=== PATIENT | female | born 1975 | race African-American/Black ===

== ENCOUNTER 2016-11-27 11:33 | Emergency (ER) | payer MEDICAID ==
[~2016-11-27] VITALS: Ht 167.6 cm; Wt 79.4 kg
[2016-11-27] MEDS ORDERED: ERYTHROMYCIN500 M1 ORAL (11:50)
[2016-11-27] MEDS ORDERED: CLINDAMYCIN HC150 MG ORAL (11:50)
[2016-11-27] MEDS ORDERED: PredniSONE 20mg tab ORAL ONE (12:00)
[2016-11-27] MEDS ORDERED: PREDNISONE20 MG ORAL (12:09)
[2016-11-27] MEDS ORDERED: AUGMENTIN 875-1 EAC1 ORAL (12:09)
[2016-11-27] MEDS ORDERED: RANITIDINE HCL150 MG ORAL (12:09)
[2016-11-27 12:14] VITALS: BP 145/96
--- NOTE | 2016-11-29 14:51 | Emergency Room Report ---
History of Present Illness General Chief Complaint: Allergic Reaction Source: Patient Present Illness HPI 41-year-old female presents to ED complaining of a rash. States she noticed a rash after starting clindamycin prescribed by her dentist 3 days ago. Patient noticed itchy rash. Patient told her dentist and was switched to erythromycin. States the rash is getting worse after starting erythromycin. Patient took Benadryl with no relief. Patient denies any known food or drug allergies prior to this. Denies any sore throat or tongue swelling. Denies shortness of breath. No aggravating relieving factors. Denies any other associated symptoms Allergies: Coded Allergies: CLINDAMYCIN (Verified Allergy, Unknown, 11/27/16) Uncoded Allergies: ERYTHROMYCIN (Allergy, Unknown, 11/27/16) Patient History Past Medical History: none Past Surgical History: none Pertinent Family History: none Social History: Denies: alcohol use, drug use, smoking Last Menstrual Period: 11/22/16 Now: No Immunizations: UTD Reviewed Nursing Documentation: PMH: Agreed, PSxH: Agreed Nursing Documentation-PMH Past Medical History: No Stated History Review of Systems All Other Systems: negative except mentioned in HPI Physical Exam Vital Signs Date Time Temp Pulse Resp B/P Pulse Ox O2 Delivery O2 Flow Rate FiO2 11/27/16 11:39 98.4 94 16 163/97 100 Room Air Sp02 EP Interpretation: reviewed, normal General Appearance: no apparent distress, alert, GCS 15, non-toxic Head: normocephalic, atraumatic Eyes: bilateral eye PERRL, bilateral eye normal inspection ENT: hearing grossly normal, normal pharynx, no angioedema, normal voice Neck: full range of motion, supple/symm/no masses Respiratory: chest non-tender, lungs clear, normal breath sounds, speaking full sentences Cardiovascular #1: regular rate, rhythm, no edema Cardiovascular #2: 2+ carotid (R), 2+ carotid (L), 2+ radial (R), 2+ radial (L) , 2+ dorsalis pedis (R), 2+ dorsalis pedis (L) Gastrointestinal: normal bowel sounds, non tender, soft, non-distended, no guarding, no rebound Rectal: deferred Genitourinary: normal inspection, no CVA tenderness Musculoskeletal: back normal, gait/station normal, normal range of motion, non- tender Neurologic: alert, oriented x3, responsive, motor strength/tone normal, sensory intact, speech normal Psychiatric: judgement/insight normal, memory normal, mood/affect normal, no suicidal/homicidal ideation Reflexes: 3+ bicep (R), 3+ bicep (L), 3+ tricep (R), 3+ tricep (L), 3+ knee (R) , 3+ knee (L) Skin: normal color, warm/dry, well hydrated, rash - urticarial rash Lymphatic: no adenopathy Medical Decision Making Diagnostic Impression: Primary Impression: Allergic reaction Qualified Codes: T78.40XA - Allergy, unspecified, initial encounter ER Course Hospital Course 41-year-old female presents ED complaining of itchy rash after taking clindamycin and erythromycin for a dental abscess Differential diagnoses include: allergic reaction, angioedema Clinical course Patient placed on stretcher. After initial history and physical, I ordered prednisone, zantac Patient will stop the erythromycin. I prescribed Augmentin but patient is hesitant to start because she has had so many drug allergies. Patient will discuss with her PMD before starting the medication i. I feel this is a highly complex case requiring extensive working including EKG/Rhythm strip, Xray/CT/US, Blood/urine lab work, repeat exams while in ED, and administration of strong opiates/narcotics for pain control, admission to hospital or close patient follow up. Diagnosis - allergic reaction Stable and discharged to home with prescriptions for Zantac, prednisone, augmentin. Followup with PMD. Return to ED if symptoms recur or worsen Last Vital Signs Date Time Temp Pulse Resp B/P Pulse Ox O2 Delivery O2 Flow Rate FiO2 11/27/16 12:14 98.5 77 16 145/96 100 Room Air Status: improved Disposition: HOME, SELF-CARE Condition: Stable Scripts Amoxicillin/Potassium Clav 875-125* (AUGMENTIN 875-125 TABLET*) 1 Each Tablet 1 TAB ORAL TWICE A DAY, #14 TAB Prov: APARNA JONES M.D. 11/27/16 Ranitidine Hcl* (ZANTAC*) 150 Mg Tablet 150 MG ORAL TWICE A DAY, #30 TAB Prov: APARNA JONES M.D. 11/27/16 Prednisone* (PREDNISONE*) 20 Mg Tablet 40 MG ORAL DAILY for 5 Days, TAB Prov: APARNA JONES M.D. 11/27/16 Referrals: [facility],REFERRING (PCP) Patient Instructions: Drug Allergy APARNA JONES M.D. Nov 29, 2016 14:51
== END 2016-11-27 12:14 | disposition home or self-care (01) ==
LOC: EMR 12:10
DX: T78.40XA Allergy, unspecified, initial encounter (principal); Z88.1 Allergy status to other antibiotic agents; X58.XXXA Exposure to other specified factors, initial encounter; Y92.9 Unspecified place or not applicable
CPT/HCPCS: 99284

== ENCOUNTER 2017-10-22 12:14 | Emergency (ER) | payer MEDICAID ==
[~2017-10-22] VITALS: Ht 167.6 cm; Wt 78.9 kg
[~2017-10-22 12:14] MED LIST: AUGMENTIN 875-1 EAC1 ORAL; CLINDAMYCIN HC150 MG ORAL; ERYTHROMYCIN500 M1 ORAL; PREDNISONE20 MG ORAL; RANITIDINE HCL150 MG ORAL
[2017-10-22] MEDS ORDERED: Acetaminophen 500mg (ES) tab ORAL ONE (12:45)
[2017-10-22] MEDS ORDERED: Tetracaine 0.5% Opth 4ml Soln LEFT EYE ONE (12:45)
[2017-10-22] MEDS ORDERED: Fluorescein Strips LEFT EYE ONE (12:45)
--- NOTE | 2017-10-22 12:46 | Emergency Room Report ---
History of Present Illness General Chief Complaint: Eye Problems Source: Patient Present Illness HPI 41-year-old female patient presents ER complaining of left eye pain for the past 3 days. Patient reports that has been read and slowly increasing pain. Reports that she attempted to treat it at home with eye drops that she had at home, treated with polymyxin B and sulfacetamide eyedrops. Reports history of pinkeye in the past, states this feels different, states feels like there is something in her eye. Denies chemicals or foreign bodies within eye. Denies wearing contacts. Reports wears glasses for reading. Denies fever, chest pain , shortness of breath. Denies other acute symptoms. denies vision loss. denies eyelid crusting. denies curtain coming down on field of vision. Reports rubbing eye. Denies pain with eye movement. Denies hx of STI. Allergies: Coded Allergies: CLINDAMYCIN (Verified Allergy, Unknown, 11/27/16) Uncoded Allergies: ERYTHROMYCIN (Allergy, Unknown, 11/27/16) Patient History Past Medical History: see triage record Last Menstrual Period: 10/21/17 Now: No Reviewed Nursing Documentation: PMH: Agreed; PSxH: Agreed Nursing Documentation-PMH Past Medical History: No Stated History Review of Systems All Other Systems: negative except mentioned in HPI Physical Exam Vital Signs Date Time Temp Pulse Resp B/P (MAP) Pulse Ox O2 Delivery O2 Flow Rate FiO2 10/22/17 12:22 98.3 96 16 137/94 99 Room Air 98.2 Sp02 EP Interpretation: reviewed, normal General Appearance: well appearing, no apparent distress, alert, GCS 15, non- toxic Head: normocephalic, atraumatic Eyes: left eye Scleral Injection - mild; bilateral eye normal inspection, bilateral eye PERRL, bilateral eye EOMI ENT: hearing grossly normal, normal pharynx, no angioedema, normal voice, TMs + canals normal, uvula midline, moist mucus membranes Neck: full range of motion Respiratory: lungs clear, normal breath sounds, no rhonchi, no respiratory distress, no accessory muscle use, no wheezing, speaking full sentences Cardiovascular #1: regular rate, rhythm, no edema Musculoskeletal: back normal, digits/nails normal, gait/station normal, normal range of motion, non-tender Neurologic: alert, oriented x3, responsive, motor strength/tone normal, sensory intact Medical Decision Making PA Attestation Dr. Sahu is my supervising Physician whom patient management has been discussed with. Diagnostic Impression: Primary Impression: Bacterial conjunctivitis Additional Impression: Cough ER Course Pt. presents to the ED c/o left eye pain. Ddx considered but are not limited to FB in eye, corneal abrasion, corneal ulcer , blepharitis, subconjunctival hemorrhage, URI, tonsillitis, pharyngitis, episcleritis. Patient has no signs of surrounding cellulitis, no exophthalmos, no pain with eye movement, does not require imaging at this time. Vital signs: are WNL, pt. is afebrile ORDERS: Ophthalmic Tetracaine. Fluorescein stain of eye. Tylenol for pain. ED INTERVENTIONS: visual acuity performed, see nurse's note. Follow up with warehouse packer. Do not use other peoples eye medication. likely bacterial conjunctivitis, mild resolution of symptoms likely due to patient using eyedrops from daughter. patient's left eye washed out with normal saline. No fluorescein uptake in left eye, low suspicion for corneal abrasion. No FB noted. intraocular pressure of left thigh 16 mmHg, intraocular pressure of right eye 18 mmHg, low suspicion for glaucoma. Wash hands, do not touch eyes, do not rub eyes. patient reports eye feeling better. Lungs clear to auscultation, no pharyngeal erythema or tonsillar swelling or exudates. Cough likely viral in nature. Will provide cough medication to patient. patient did not cough while in ER. DISCHARGE: - Rx provided for OCUFLOX, place 2 drops in affected eye BID for 7 days - Rx provided for Promethazine for cough symptoms Take Tylenol OTC for pain. Does not require rx for Tylenol at this time. Use OTC eye drops to help irrigate eye, not not touch dropper to eye. At this time pt. is stable for d/c to home. Patient resting comfortably in no acute distress, nontoxic appearing. Will provide printed patient care instructions and any necessary prescriptions. Care plan and follow up instructions have been discussed with the patient prior to discharge Follow-up with lime boiler in 24 hours. Follow-up with primary care provider in 2-3 days. Follow up with warehouse packer. Take medications as directed. Patient questions asked and answered. ER precautions given, patient instructed to return to ER immediately for any new or worsening of symptoms. - Please note that this Emergency Department Report was dictated using Quick[employer] Mediachurn operator margarine technology software, occasionally this can lead to erroneous entry secondary to interpretation by the dictation equipment. Last Vital Signs Date Time Temp Pulse Resp B/P (MAP) Pulse Ox O2 Delivery O2 Flow Rate FiO2 10/22/17 12:22 98.3 96 16 137/94 99 Room Air 98.2 Disposition: HOME, SELF-CARE Condition: Stable Scripts Promethazine Hcl (PROMETHAZINE HCL*) 6.25 Mg/5 Ml Syrup 5 ML ORAL Q8H, #120 ML 0 Refills Prov: Jarrett Smart 10/22/17 Ofloxacin (OCUFLOX) 5 Ml Drops 2 DROP OP BID for 7 Days, #5 ML Prov: Jarrett Smart 10/22/17 Patient Instructions: Bacterial Conjunctivitis, [id number], Cough, Adult, [id number] Additional Instructions: Followup with primary care provider in 2-3 days, discuss referral to ophthalmology. Follow-up with warehouse packer. Wash hands, do not touch eye. Take medications as directed. Do not place eyedropper directly on eye. Do not use medications that are not prescribed to. Patient questions asked and answered. ER precautions given, patient instructed to return to ER immediately for any new or worsening of symptoms. Jarrett Smart Oct 22, 2017 12:46
[2017-10-22 13:05] VITALS: BP 137/94
[2017-10-22] MEDS ORDERED: OCUFLOX5 ML OP (13:18)
[2017-10-22] MEDS ORDERED: PROMETHAZI6.25 MG/1 ORAL (13:18)
[2017-10-22 13:55] VITALS: BP 137/94
== END 2017-10-22 13:40 | disposition home or self-care (01) ==
LOC: EMR 12:35
DX: H10.89 Other conjunctivitis (principal); R05 Cough; Z88.1 Allergy status to other antibiotic agents
CPT/HCPCS: 99283

== ENCOUNTER 2019-06-26 09:41 | Emergency (ER) | payer MEDICAID ==
[~2019-06-26] VITALS: Ht 167.6 cm; Wt 77.1 kg
[~2019-06-26 09:41] MED LIST changes: +OCUFLOX5 ML OP; +PROMETHAZI6.25 MG/1 ORAL
[2019-06-26] MEDS ORDERED: ENALAPRIL MALE2.5 MG ORAL (09:50)
[2019-06-26] MEDS ORDERED: HYDROCHLOROTHIA25 MG ORAL (09:50)
--- NOTE | 2019-06-26 10:00 | NUR ---
ED Nurse Note: Pt walked in from home c/o epigastric sharp abdominal pain 02/28 with N/V/diarrhea x 3 days. Pt traveled to [place] from 06/21/19-06/24/19 and has been having symptoms since. Pt A+Ox4. Respirations even and unlabored on room air. Vitals stable as documented with b/p of 99/69.
[2019-06-26 10:09] VITALS: BP 96/69
[2019-06-26] MEDS ORDERED: Mylanta II UD 30ml ORAL ONE (10:30)
[2019-06-26] MEDS ORDERED: Dicyclomine HCl 10mg/5ml oral soln ORAL ONE (10:30)
[2019-06-26] MEDS ORDERED: Lidocaine 2% Visc 15ml soln ORAL ONE (10:30)
--- NOTE | 2019-06-26 10:32 | Emergency Room Report ---
History of Present Illness General Chief Complaint: Abdominal Pain Source: Patient Present Illness HPI Patient is a 43-year-old female presents after increased epigastric pain. Onset of symptoms 3 days ago. Reports having increased nausea as well as spinning sensation. She had recently had a cruise to [place]. Denies any bloody stools. She reports having prior history of cholecystectomy. Reports significant recent alcohol intake. Denies any hematemesis. Denies any other complaints. Allergies: Coded Allergies: CLINDAMYCIN (Verified Allergy, Unknown, 11/27/16) Uncoded Allergies: ERYTHROMYCIN (Allergy, Unknown, 11/27/16) Patient History Past Medical History: see triage record Last Menstrual Period: Jun 21, 2019 Now: No Reviewed Nursing Documentation: PMH: Agreed; PSxH: Agreed Nursing Documentation-PMH Past Medical History: No History, Except For Hx Hypertension: Yes Review of Systems All Other Systems: negative except mentioned in HPI Physical Exam Vital Signs Date Time Temp Pulse Resp B/P (MAP) Pulse Ox O2 Delivery O2 Flow Rate FiO2 06/26/19 09:44 98.4 82 17 143/94 (110) 99 Room Air Sp02 EP Interpretation: reviewed, normal General Appearance: normal inspection, well appearing, no apparent distress, alert, GCS 15, non-toxic Head: atraumatic ENT: normal ENT inspection, hearing grossly normal, normal voice Neck: normal inspection, full range of motion, supple, no bony tend Respiratory: normal inspection, lungs clear, normal breath sounds, no respiratory distress, no retraction, no wheezing Cardiovascular #1: regular rate, rhythm, no edema Gastrointestinal: normal inspection, normal bowel sounds, non tender, soft, no guarding, no hernia Genitourinary: no CVA tenderness Musculoskeletal: normal inspection, back normal, normal range of motion Neurologic: alert, motor strength/tone normal, internet developer III-XII nml as tested, oriented x3, responsive, speech normal, normal inspection Psychiatric: normal inspection, judgement/insight normal, mood/affect normal Medical Decision Making ER Course Patient presented for abdominal pain. Differential diagnoses included enteritis , ischemic bowel, appendicitis, perforated viscus, abdominal aortic aneurysm, inferior myocardial infarction, viral gastroenteritis among others.Because patient's complexity imaging studies, and laboratory testing ordered. Laboratory testing showed . Electrolytes Lipase was White blood count was CT of the abdomen pelvis showed: Abdominal ultrasound showed Patient appears to be stable for close outpatient follow up. Last Vital Signs Date Time Temp Pulse Resp B/P (MAP) Pulse Ox O2 Delivery O2 Flow Rate FiO2 06/26/19 10:09 98.4 78 17 96/69 100 Room Air Referrals: NON PHYSICIAN (PCP) Rod Sahu MD Jun 26, 2019 10:32
[2019-06-26 10:55] LABS: APPEARANCE,URINE CLEAR; BASOPHILS % (AUTO) 0.9 % (0.0-2.0); BILIRUBIN, URINE NEGATIVE (NEGATIVE); COLOR,URINE YELLOW; EOSINOPHILS % (AUTO) 1.2 % (0.0-3.0); GLUCOSE, URINE (UA) NEGATIVE (NEGATIVE); HEMATOCRIT 33.7 % (37.0-47.0); HEMOGLOBIN 11.2 G/DL (12.0-16.0); KETONES,URINE NEGATIVE (NEGATIVE); LEUKOCYTE ESTERASE ,URINE 1+ (NEGATIVE); MEAN CORPUSCULAR VOLUME 81 FL (80-99); NEUTROPHILS % (AUTO) 60.9 % (45.0-75.0); NITRITE,URINE NEGATIVE (NEGATIVE); PH,URINE 8 (4.5-8.0); PLATELET COUNT 400 K/UL (150-450); PROTEIN,URINE 1+ (NEGATIVE); RED BLOOD COUNT 4.17 M/UL (4.20-5.40); RED CELL DISTRIBUTION WIDTH 15.1 % (11.6-14.8); UROBILINOGEN,URINE NORMAL MG/DL (0.0-1.0)
[2019-06-26 11:33] LABS: ANION GAP 11 mmol/L (5-15); BLOOD UREA NITROGEN 10 mg/dL (7-18); CARBON DIOXIDE 29 MMOL/L (21-32); CHLORIDE 100 MMOL/L (98-107); CREATININE 0.8 MG/DL (0.55-1.30); POTASSIUM 3.6 MMOL/L (3.5-5.1); SODIUM 140 MMOL/L (136-145)
[2019-06-26 11:37] LABS: ALANINE AMINOTRANSFERASE 28 U/L (12-78); ALBUMIN 3.8 G/DL (3.4-5.0); ALBUMIN/GLOBULIN RATIO 0.9 (1.0-2.7); ALKALINE PHOSPHATASE 55 U/L (46-116); ASPARTATE AMINO TRANSFERASE 24 U/L (15-37); BILIRUBIN,TOTAL 0.4 MG/DL (0.2-1.0)
[2019-06-26] MEDS ORDERED: DICYCLOMINE HCL10 MG ORAL (11:49)
[2019-06-26] MEDS ORDERED: ONDANSETRON ODT4 MG BC (11:49)
[2019-06-26 11:56] VITALS: BP 130/101
[2019-06-26 12:01] VITALS: BP 130/101
--- NOTE | 2019-06-26 12:01 | NUR ---
ER DISCHARGE NOTE: Patient is cleared to be discharged per ERMD DR BOLANOS, pt is aox4, on room air, with stable vital signs. pt was given dc and prescription instructions, pt was able to verbalize understanding, pt id band and iv site removed without complications. pt is able to ambulate with steady gait. pt took all belongings.
== END 2019-06-26 12:03 | disposition home or self-care (01) ==
LOC: EMR 10:10
DX: R10.13 Epigastric pain (principal); I10 Essential (primary) hypertension; Z88.8 Allergy status to other drugs, medicaments and biological substances; Z90.49 Acquired absence of other specified parts of digestive tract
CPT/HCPCS: 36415; 80053; 81003; 81025; 83690; 84484; 85025; 86710; 96361; 96374; 96375; J2405; J7030; S0028; Z7502; 99284

== ENCOUNTER 2019-11-11 14:14 | Emergency (ER) | payer MEDICAID ==
[~2019-11-11] VITALS: Ht 167.6 cm; Wt 77.1 kg
[~2019-11-11 14:14] MED LIST changes: +DICYCLOMINE HCL10 MG ORAL; +ENALAPRIL MALE2.5 MG ORAL; +HYDROCHLOROTHIA25 MG ORAL; +ONDANSETRON ODT4 MG BC
--- NOTE | 2019-11-11 14:35 | NUR ---
ED Nurse Note:pt. came with c/o vaginal itching discharge and urgency, urine sent to labs
[2019-11-11 14:57] LABS: APPEARANCE,URINE CLEAR; BILIRUBIN, URINE NEGATIVE (NEGATIVE); GLUCOSE, URINE (UA) NEGATIVE (NEGATIVE); KETONES,URINE NEGATIVE (NEGATIVE); LEUKOCYTE ESTERASE ,URINE NEGATIVE (NEGATIVE); NITRITE,URINE NEGATIVE (NEGATIVE); PH,URINE 6 (4.5-8.0); PROTEIN,URINE NEGATIVE (NEGATIVE); UROBILINOGEN,URINE NORMAL MG/DL (0.0-1.0)
[2019-11-11 15:00] LABS: COLOR,URINE YELLOW
[2019-11-11 15:10] VITALS: BP 168/100
--- NOTE | 2019-11-11 15:37 | NUR ---
ED Nurse Note: pt moved to [facility] room for further eval of pt. no new s/s.
--- NOTE | 2019-11-11 15:47 | Emergency Room Report ---
History of Present Illness General Chief Complaint: Female Urogenital Problems Source: Patient Present Illness HPI Disclaimer: Please note that this report is being documented using DRAGON technology. This can lead to erroneous entry secondary to incorrect interpretation by the dictating instrument. HPI: 43-year-old female with a history of uterine fibroids presents for evaluation of vaginal bleeding. The patient states she typically had normal periods however over the past 3 months she has had recurrent bleeding after her menstrual cycle. She has been using [id number] feminine hygiene products. She states now she has a thin white vaginal discharge, mild odor and itchiness. She denies pelvic pain exactly but notes a discomfort. Denies pain with sexual intercourse. Denies flank pain, fever, chills, vomiting, diarrhea. Has not yet seen her SHRIMP BOAT CAPTAIN. PMH: Fibroids, hypertension PSH: Umbilical hernia repair Allergies: Clindamycin, erythromycin Social Hx: Reviewed Allergies: Coded Allergies: CLINDAMYCIN (Verified Allergy, Unknown, 11/27/16) Uncoded Allergies: ERYTHROMYCIN (Allergy, Unknown, 11/27/16) COVID-19 Screening Contact w/high risk pt: No Recent Travel to affected area: No Experienced COVID-19 symptoms?: No COVID-19 Testing performed OPERATIONS FORESTER: No Patient History Last Menstrual Period: tubes tied Now: No Nursing Documentation-[facility] Past Medical History: No History, Except For Hx Hypertension: Yes Review of Systems All Other Systems: negative except mentioned in HPI Physical Exam Vital Signs Date Time Temp Pulse Resp B/P (MAP) Pulse Ox O2 Delivery O2 Flow Rate FiO2 11/11/19 14:19 98.6 88 18 168/100 (122) 99 Room Air General: Awake and alert, no acute distress HEENT: NC/AT. EOMI. Resp: Normal work of breathing Abdomen: Soft, nontender, nondistended, no masses, no rebound. : Normal-appearing external genitalia. No palpable masses. No cervical motion tenderness, no adnexal tenderness. There is a moderate thick white discharge. No bleeding lesions noted. Skin: Intact. No abrasions, laceration or rash over the exposed skin MSK: Normal tone and bulk. Moving all extremities. No obvious deformity. Neuro: Awake and alert. Mentating appropriately Medical Decision Making Diagnostic Impression: Primary Impression: Uterine fibroid Additional Impression: Vaginal bleeding ER Course 43-year-old female presents for evaluation of intermittent vaginal bleeding and vaginal discharge. Concern for urinary tract infection, BV, STI, candidal infection, fibroid, mass, PID, dysfunctional uterine bleeding, menopausal changes. Arrives with stable vital signs and no distress. Physical exam reassuring, no clinical evidence of PID. Urinalysis does not suggest an acute urinary tract infection. Wet mount shows few bacteria and few WBCs but otherwise no evidence of BV or candidal infection. Ultrasound consistent with uterine fibroids which were the pain with patient's bleeding. Will refer to OB/ LABELING MACHINE OPERATOR. She has had surgical excision of fibroids in the past. Otherwise well- appearing with no other complaints. Discharged with outpatient SHRIMP BOAT CAPTAIN follow- up. Laboratory Tests Test 11/11/19 14:30 Urine Color Yellow Urine Appearance Clear Urine pH 6 (4.5-8.0) Urine Specific [place]etter 1.020 (1.005-1.035) Urine Protein Negative (NEGATIVE) Urine Glucose (UA) Negative (NEGATIVE) Urine Ketones Negative (NEGATIVE) Urine Blood 5+ (NEGATIVE) H Urine Nitrite Negative (NEGATIVE) Urine Bilirubin Negative (NEGATIVE) Urine Urobilinogen Normal MG/DL (0.0-1.0) Urine Leukocyte Esterase Negative (NEGATIVE) Urine RBC 5-10 /HPF (0 - 2) H Urine WBC 0-2 /HPF (0 - 2) Urine Squamous Epithelial Cells Moderate /LPF (NONE/OCC) H Urine Bacteria Few /HPF (NONE) Urine HCG, Qualitative Negative (NEGATIVE) Microbiology Date/Time Source Procedure Growth Status 11/11/19 16:20 Vaginal Wet Prep - Final Complete CT/MRI/US Diagnostic Results CT/MRI/US Diagnostic Results : Impression Procedure: US Pelvic Transabdominal EXAM: US Pelvis Transabdominal, Complete CLINICAL HISTORY: ABD PAIN TECHNIQUE: Real-time complete transabdominal pelvic ultrasound with image documentation. COMPARISON: No relevant prior studies available. FINDINGS: Uterus/cervix: Heterogeneous appearance of the uterus consistent with fibroids. Benign cervical nabothian cysts. Uterus 8.4 x 8.3 x 4.5 cm Endometrium 1.1 cm. Multiple intramural and subserosal fibroids measure up to 3.3 cm. Right ovary: Right ovary 3.4 x 3.3 x 1.9 cm Normal blood flow. Left ovary: Left ovary 2.1 x 2.3 x 1.3 Normal blood flow. Free fluid: No free fluid. Bladder: Unremarkable as visualized. Wall is normal thickness for degree of distention. Other findings: Patient has a negative test. IMPRESSION: 1. Patient has a negative test. 2. No acute abnormality definitively identified to account for patient presentation. 3. Heterogeneous appearance of the uterus consistent with fibroids. Dictated By: Malcolm Adams MD Electronically Signed By: Malcolm Adams MD Signed Date/Time 11/11/19 [id number] CC: Brent Reardon MD Last Vital Signs Date Time Temp Pulse Resp B/P (MAP) Pulse Ox O2 Delivery O2 Flow Rate FiO2 11/11/19 15:10 98.6 80 18 168/100 99 Room Air Disposition: HOME, SELF-CARE Condition: Stable Brent Reardon MD Nov 11, 2019 15:47
--- NOTE | 2019-11-11 16:23 | NUR ---
ED Nurse Note: pt with pelvic exam done by dr Hyman with rn assistance wet mount obtained and sent. pt tolerates well.
--- NOTE | 2019-11-11 17:06 | NUR ---
ED Nurse Note: ultrasound at bs.
--- NOTE | 2019-11-11 18:26 | Diagnostic Imaging Report ---
EXAM: US Pelvis Transabdominal, Complete CLINICAL HISTORY: ABD PAIN TECHNIQUE: Real-time complete transabdominal pelvic ultrasound with image documentation. COMPARISON: No relevant prior studies available. FINDINGS: Uterus/cervix: Heterogeneous appearance of the uterus consistent with fibroids. Benign cervical nabothian cysts. Uterus 8.4 x 8.3 x 4.5 cm Endometrium 1.1 cm. Multiple intramural and subserosal fibroids measure up to 3.3 cm. Right ovary: Right ovary 3.4 x 3.3 x 1.9 cm Normal blood flow. Left ovary: Left ovary 2.1 x 2.3 x 1.3 Normal blood flow. Free fluid: No free fluid. Bladder: Unremarkable as visualized. Wall is normal thickness for degree of distention. Other findings: Patient has a negative test. IMPRESSION: 1. Patient has a negative test. 2. No acute abnormality definitively identified to account for patient presentation. 3. Heterogeneous appearance of the uterus consistent with fibroids.
--- NOTE | 2019-11-11 18:51 | NUR ---
ED Nurse Note: Pt cleared by health care Provider for discharge. DC instructions/prescription was given and explained to pt and verbalized understanding of teachings. All medical devices such as ID band removed. Pt is AAO x4, ambulatory and left with all personal belongings. copies of lab and us given to pt.
[2019-11-11 18:52] VITALS: BP 168/100
== END 2019-11-11 18:53 | disposition home or self-care (01) ==
LOC: EMR 14:45
DX: D25.9 Leiomyoma of uterus, unspecified (principal); N93.9 Abnormal uterine and vaginal bleeding, unspecified; I10 Essential (primary) hypertension; N88.8 Other specified noninflammatory disorders of cervix uteri; Z88.8 Allergy status to other drugs, medicaments and biological substances; Z98.51 Tubal ligation status
CPT/HCPCS: 76830; 76856; 81003; 81025; 87210; Z7502; 99284

== ENCOUNTER 2020-06-15 16:54 | Inpatient (IN) | payer MEDICAID ==
[~2020-06-15] VITALS: Ht 167.6 cm; Wt 74.8 kg
[2020-06-15] MEDS ORDERED: Ketorolac 30mg Inj IV ONE (17:15)
[2020-06-15 17:16] VITALS: BP 181/90
--- NOTE | 2020-06-15 17:16 | NUR ---
ED Nurse Note: Patient from home and walked in due to N/V/D, chills and fever of 100.F at home. Pt reports that she returned from [facility] on 06/09 and was tested negative for covid. Patient is AAOx4, ambulatory with SOB at rest.
[2020-06-15] MEDS ORDERED: Omnipaque-300 100ml vial INJ PRN (17:30)
[2020-06-15] MEDS ORDERED: fentaNYL 100 mcg/2 mL IV ONE (17:30)
--- NOTE | 2020-06-15 17:35 | Emergency Room Report ---
History of Present Illness General Chief Complaint: Flu Like Symptoms Source: Patient Present Illness HPI Patient is a 44-year-old female past medical history of hypertension who presents to the ER complaining of abdominal pain. Patient states that around June 09 she went to [place] and started feeling sick the same day. She complains of diffuse abdominal cramping, nausea, nonbilious nonbloody vomitus an d nonbloody diarrhea. She states that she got a COVID-19 test 2 days later and was negative. Patient complains of subjective fevers and body aches. She states she tried taking Tylenol at home and green goddess which did not help. Patient does have a history of hernia surgery last year. She denies any chest pain. She denies any lower extremity pain or edema. Patient is tearful and appears to be uncomfortable. 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 - pt tested 06/11 COVID-19 Screening: Negative COVID-19 COVID-19 Testing Source: outside source Patient History Last Menstrual Period: current Reviewed Nursing Documentation: PMH: Agreed; PSxH: Agreed Nursing Documentation-PMH Hx Hypertension: Yes Review of Systems All Other Systems: negative except mentioned in HPI Physical Exam Vital Signs Date Time Temp Pulse Resp B/P (MAP) Pulse Ox O2 Delivery O2 Flow Rate FiO2 06/15/20 17:06 98.6 134 30 181/90 (120) 100 Room Air Sp02 EP Interpretation: reviewed, normal General Appearance: GCS 15, moderate distress - Tearful Head: normocephalic, atraumatic Eyes: bilateral eye normal inspection, bilateral eye PERRL ENT: hearing grossly normal, normal pharynx, no angioedema, normal voice Neck: full range of motion, supple/symm/no masses Respiratory: normal breath sounds, no accessory muscle use, other - Mildly tachypneic Cardiovascular #1: tachycardia Gastrointestinal: other - Diffuse abdominal pain with no guarding or rebound Rectal: deferred Genitourinary: no CVA tenderness Musculoskeletal: normal range of motion Neurologic: intranet developer III-XII nml as tested, oriented x3 Psychiatric: no suicidal/homicidal ideation Skin: no rash Lymphatic: no adenopathy Medical Decision Making Diagnostic Impression: Primary Impression: Diverticulitis Additional Impression: Tachycardia ER Course Patient given multiple doses of IV fluids and IV antibiotics for her diverticulitis. Patient persistently tachycardic. Will admit for further treatment and evaluation. Laboratory Tests Test 06/15/20 17:20 06/15/20 18:08 White Blood Count 14.2 K/UL (4.8-10.8) H Red Blood Count 4.42 M/UL (4.20-5.40) Hemoglobin 11.3 G/DL (12.0-16.0) L Hematocrit 36.2 % (37.0-47.0) L Mean Corpuscular Volume 82 FL (80-99) Mean Corpuscular Hemoglobin 25.6 PG (27.0-31.0) L Mean Corpuscular Hemoglobin Concent 31.3 G/DL (32.0-36.0) L Red Cell Distribution Width 14.3 % (11.6-14.8) Platelet Count 398 K/UL (150-450) Mean Platelet Volume 7.8 FL (6.5-10.1) Neutrophils (%) (Auto) 73.8 % (45.0-75.0) Lymphocytes (%) (Auto) 11.3 % (20.0-45.0) L Monocytes (%) (Auto) 13.6 % (1.0-10.0) H Eosinophils (%) (Auto) 0.5 % (0.0-3.0) Basophils (%) (Auto) 0.9 % (0.0-2.0) Prothrombin Time 10.9 SEC (9.30-11.50) Prothrombin Time INR 1.0 (0.9-1.1) Activated Partial Thromboplast Time 26 SEC (23-33) D-Dimer 0.88 mg/L FEU (0.00-0.49) H Sodium Level 139 MMOL/L (136-145) Potassium Level 4.4 MMOL/L (3.5-5.1) Chloride Level 104 MMOL/L (98-107) Carbon Dioxide Level 23 MMOL/L (21-32) Anion Gap 12 mmol/L (5-15) Blood Urea Nitrogen 12 mg/dL (7-18) Creatinine 0.5 MG/DL (0.55-1.30) L Estimated Glomerular Filtration Rate > 60 mL/min (>60) Glucose Level 89 MG/DL (74-106) Lactic Acid Level 1.70 mmol/L (0.4-2.0) Calcium Level 10.0 MG/DL (8.5-10.1) Magnesium Level 1.7 MG/DL (1.8-2.4) L Ferritin 50 NG/ML (8-388) Total Bilirubin 0.6 MG/DL (0.2-1.0) Aspartate Amino Transferase (AST) 25 U/L (15-37) Alanine Aminotransferase (ALT) 39 U/L (12-78) Alkaline Phosphatase 72 U/L (46-116) Lactate Dehydrogenase 169 U/L (81-234) Total Creatine Kinase 54 U/L (26-308) Troponin I 0.006 ng/mL (0.000-0.056) C-Reactive Protein, Quantitative 3.1 mg/dL (0.00-0.90) H Pro-B-Type Natriuretic Peptide 194 pg/mL (0-125) H Total Protein 8.1 G/DL (6.4-8.2) Albumin 3.5 G/DL (3.4-5.0) Globulin 4.6 g/dL Albumin/Globulin Ratio 0.8 (1.0-2.7) L Lipase 218 U/L (73-393) Urine Color Yellow Urine Appearance Slightly cloudy Urine pH 5 (4.5-8.0) Urine Specific [place] 1.020 (1.005-1.035) Urine Protein 1+ (NEGATIVE) H Urine Glucose (UA) Negative (NEGATIVE) Urine Ketones 1+ (NEGATIVE) H Urine Blood 4+ (NEGATIVE) H Urine Nitrite Negative (NEGATIVE) Urine Bilirubin Negative (NEGATIVE) Urine Urobilinogen Normal MG/DL (0.0-1.0) Urine Leukocyte Esterase Negative (NEGATIVE) Urine RBC 10-15 /HPF (0 - 2) H Urine WBC 0-2 /HPF (0 - 2) Urine Squamous Epithelial Cells Moderate /LPF (NONE/OCC) H Urine Bacteria Few /HPF (NONE) Urine Mucus Many /LPF (NONE/OCC) H Urine HCG, Qualitative Negative (NEGATIVE) Urine Opiates Screen Negative (NEGATIVE) Urine Barbiturates Screen Negative (NEGATIVE) Phencyclidine (PCP) Screen Negative (NEGATIVE) Urine Amphetamines Screen Negative (NEGATIVE) Urine Benzodiazepines Screen Negative (NEGATIVE) Urine Cocaine Screen Negative (NEGATIVE) Urine Marijuana (THC) Screen Positive (NEGATIVE) H Microbiology Date/Time Source Procedure Growth Status 06/15/20 17:20 Nasal Nares - Final Complete 06/15/20 17:20 Nasal Nares - Final Complete EKG Diagnostic Results Troponin ordered: Yes When was troponin ordered?: Jun 15, 2020 EKG Time: 17:32 EP Interpretation: Mikki Chahal MD Rate: tachycardiac - 127 bpm Rhythm: other - sinus tachycardia ST Segments: no acute changes ASA given to the pt in ED: No Rhythm Strip Diag. Results Rhythm Strip Time: 17:35 EP Interpretation: yes - Mikki Chahal MD Rate: 127 bpm Rhythm: no PVC's, no ectopy, other - Sinus tachycardia Chest X-Ray Diagnostic Results Chest X-Ray Diagnostic Results : Chest X-Ray Ordered: Yes # of Views/Limited/Complete: 1 View Indication: Other - fever EP Interpretation: Yes Interpretation: no consolidation, no effusion, no pneumothorax, no acute cardiopulmonary disease Impression: No acute disease Electronically Signed by: Mikki Chahal MD Last Vital Signs Date Time Temp Pulse Resp B/P (MAP) Pulse Ox O2 Delivery O2 Flow Rate FiO2 06/15/20 17:06 98.6 134 30 181/90 (120) 100 Room Air Disposition: ADMITTED INPATIENT - telemetry Condition: Critical Physician Consult: Dr. Fermin at 2100 Additional Instructions: Please note that this report is being documented using Pumant technology. This can lead to erroneous entry secondary to incorrect interpretation by the dictating instrument. Mikki Chahal M.D. Jun 15, 2020 17:35
--- NOTE | 2020-06-15 17:38 | NUR ---
Nurse Note: PT walked in c/o n/v/d, chills, fever since 06/11. Pt stated she returned from [place], [place] 06/09 and was tested 06/11. Pt stated the result is negative on testing date. Pt stated fever >100.F temp. Pt on classroom monitor, HR 134. Pt tearing d/t pain, guarding abd. Pt stated diarrhea since 06/11, denies blood in diarrhea. Pt stated leg swelling on 06/09 but subsided. 18gauge est on RT AC; blood collected. Covid and flu swab collected and sent to lab. Pt stated EKG completed and showen to MD. x-ray at bedside. Pt wearing mask on arrival and placed in an isolated room. All safety measures met.
[2020-06-15 18:09] LABS: ANION GAP 12 mmol/L (5-15); BLOOD UREA NITROGEN 12 mg/dL (7-18); CARBON DIOXIDE 23 MMOL/L (21-32); CHLORIDE 104 MMOL/L (98-107); CREATININE 0.5 MG/DL (0.55-1.30); POTASSIUM 4.4 MMOL/L (3.5-5.1); SODIUM 139 MMOL/L (136-145)
[2020-06-15 18:10] LABS: BASOPHILS % (AUTO) 0.9 % (0.0-2.0); EOSINOPHILS % (AUTO) 0.5 % (0.0-3.0); HEMATOCRIT 36.2 % (37.0-47.0); HEMOGLOBIN 11.3 G/DL (12.0-16.0); LYMPHOCYTES % (AUTO) 11.3 % (20.0-45.0); MEAN CORPUSCULAR VOLUME 82 FL (80-99); MONOCYTES % (AUTO) 13.6 % (1.0-10.0); NEUTROPHILS % (AUTO) 73.8 % (45.0-75.0); PLATELET COUNT 398 K/UL (150-450); RED BLOOD COUNT 4.42 M/UL (4.20-5.40); RED CELL DISTRIBUTION WIDTH 14.3 % (11.6-14.8); WHITE BLOOD COUNT 14.2 K/UL (4.8-10.8)
--- NOTE | 2020-06-15 18:16 | NUR ---
Nurse Note: Urine collected and sent to lab. Pt stated back pain is better but abd pain is consistant; will inform md
[2020-06-15 18:27] LABS: ALANINE AMINOTRANSFERASE 39 U/L (12-78); ALBUMIN 3.5 G/DL (3.4-5.0); ALBUMIN/GLOBULIN RATIO 0.8 (1.0-2.7); ALKALINE PHOSPHATASE 72 U/L (46-116); ASPARTATE AMINO TRANSFERASE 25 U/L (15-37); BILIRUBIN,TOTAL 0.6 MG/DL (0.2-1.0); CREATINE KINASE 54 U/L (26-308); FERRITIN 50 NG/ML (8-388); LACTATE DEHYDROGENASE 169 U/L (81-234)
[2020-06-15] MEDS ORDERED: Morphine Sulfate 4mg/ml Inj (IV USE ONLY) IVP ONE (18:30)
[2020-06-15 18:38] LABS: BILIRUBIN, URINE NEGATIVE (NEGATIVE); GLUCOSE, URINE (UA) NEGATIVE (NEGATIVE); KETONES,URINE 1+ (NEGATIVE); LEUKOCYTE ESTERASE ,URINE NEGATIVE (NEGATIVE); NITRITE,URINE NEGATIVE (NEGATIVE); PH,URINE 5 (4.5-8.0); PROTEIN,URINE 1+ (NEGATIVE); UROBILINOGEN,URINE NORMAL MG/DL (0.0-1.0)
[2020-06-15 18:59] LABS: APPEARANCE,URINE SLIGHTLY CLOUDY; COLOR,URINE YELLOW
[2020-06-15] MEDS ORDERED: Hydromorphone 0.5mg/0.5ml inj IVP ONE ×2 (19:15→21:00)
[2020-06-15 19:48] VITALS: BP 152/92
--- NOTE | 2020-06-15 19:49 | Diagnostic Imaging Report ---
EXAM: CT Abdomen and Pelvis With Intravenous Contrast CLINICAL HISTORY: PAIN TECHNIQUE: Axial computed tomography images of the abdomen and pelvis with intravenous contrast. CTDI is 6.7 mGy and DLP is 337.3 mGy-cm. One or more of the following dose reduction techniques were used: automated exposure control, adjustment of the mA and/or kV according to patient size, use of iterative reconstruction technique. COMPARISON: No relevant prior studies available. FINDINGS: Lung bases: No significant abnormality. ABDOMEN: Liver: Mild hepatomegaly. Indeterminate 1.6 cm focus of hypoattenuation in the inferior right hepatic lobe. Gallbladder and bile ducts: No significant abnormality. No calcified stones. Pancreas: No significant abnormality. Spleen: No significant abnormality. Adrenals: No significant abnormality. Kidneys and ureters: Subcentimeter focus of hypoattenuation in the right kidney is too small to characterize. No hydronephrosis. Stomach and bowel: Thickened diverticulum in the sigmoid colon with mild surrounding inflammatory change. Bowel is nondilated. PELVIS: Appendix: No findings to suggest acute appendicitis. Bladder: No significant abnormality. Reproductive: Enlarged myomatous uterus. ABDOMEN and PELVIS: Intraperitoneal space: No free air or loculated fluid collection. Bones/joints: No acute fracture or malalignment. Soft tissues: No significant abnormality. Vasculature: No significant abnormality. No abdominal aortic aneurysm. Lymph nodes: No significant abnormality. IMPRESSION: Uncomplicated sigmoid diverticulitis. No free air or abscess.
--- NOTE | 2020-06-15 19:50 | NUR ---
Nurse Note: Pt went to CT with RN and portable monitor. Pt tolerated CT, HR 120bpm. Pt back in ed 1 bed [address] MD schulz aware to pt pain and increased HR
--- NOTE | 2020-06-15 19:59 | Diagnostic Imaging Report ---
EXAM: CT Angiography Chest With Intravenous Contrast CLINICAL HISTORY: Tachypnea TECHNIQUE: Axial computed tomographic angiography images of the chest with intravenous contrast. CTDI is 7.2 mGy and DLP is 246.1 mGy-cm. One or more of the following dose reduction techniques were used: automated exposure control, adjustment of the mA and/or kV according to patient size, use of iterative reconstruction technique. MIP reconstructed images were created and reviewed. COMPARISON: No relevant prior studies available. FINDINGS: Pulmonary arteries: No pulmonary embolism. Aorta: No acute findings. No thoracic aortic aneurysm. Lungs: No consolidation. No suspicious pulmonary nodule. Pleural space: No significant abnormality. No significant effusion. No pneumothorax. Heart: No cardiomegaly. No significant pericardial effusion. Bones/joints: No acute fracture. Soft tissues: No significant abnormality. Lymph nodes: No significant abnormality. No enlarged lymph nodes. IMPRESSION: Normal chest CTA. No pulmonary embolism.
[2020-06-15 21:00] VITALS: BP 126/80
--- NOTE | 2020-06-15 21:00 | NUR ---
Nurse Note: Pt awake, alert; pain controlled with pain meds. Pt infusing antibiotics; administered pain med and anti nausea med. Pt remains on pvc monitor. No signs of acute distress. All safety measures met.
--- NOTE | 2020-06-15 21:12 | NUR ---
Nurse Note: Report given to WES Phillip for continuity of care. Pt infusing cipro. All belongings accounted for. Informed mother, cameron noble
[2020-06-15 22:00] VITALS: BP 152/100
--- NOTE | 2020-06-15 22:12 | NUR ---
NURSE NOTES: Received patient from 3 ED personnel. On room air, saturating well. AAOx4, able to verbalize needs. Complaining of abdominal pain due to diverticulitis. latest VS: 152/100; 132; RR 20; T: 100.2; SpO2: 100 on room air. Not in acute distress. Bed in lowest position, brakes engaged and bed alarm on. Left a message with Dr. Fermin for admission orders.
--- NOTE | 2020-06-15 23:11 | NUR ---
NURSE NOTES: Left a message with Dr. Fermin for admission orders. Still awaiting call backs.
[2020-06-16] VITALS: BP 132/84
--- NOTE | 2020-06-16 00:08 | NUR ---
NURSE NOTES: Called nursing field supervisor seed production regarding lack of response from Dr. Fermin. Awaiting call back.
[2020-06-16] MEDS ORDERED: Hydromorphone 0.5mg/0.5ml inj IVP PRN (00:30)
--- NOTE | 2020-06-16 00:44 | NUR ---
NURSE NOTES: Admission orders from Dr. Fermin: Continue ED meds; Tylenol 650mg for Fever; NPO; full code; continue IV fluids from ED. Consults to be added in the morning. No labs ordered.
--- NOTE | 2020-06-16 03:10 | NUR ---
NURSE NOTES: Patient asleep. Not in acute distress. on room air, saturating well. Pt able to ambulate with supervision to the restroom. IVF running at a prescribed rate. Will continue to monitor.
[2020-06-16 04:00] VITALS: BP 134/83
--- NOTE | 2020-06-16 07:04 | NUR ---
NURSE HAND-OFF REPORT: Important Events on Shift:[New admit; follow up on additional admission orders.] Patient Status: [Full code, stable] Diet: [NPO except ice chips and meds] Pending Orders: [] Pending Results/Labs:[] Pending MD notification:[] Latest Vital Signs: Temperature 97.7 , Pulse 120 , B/P 134 /83 , Respiratory Rate 20 , O2 SAT 100 , Room Air, O2 Flow Rate . Vital Sign Comment: [] EKG Rhythm: Sinus Tachycardia Rhythm change?: N MD Notified?: - MD Response: Latest Paz Fall Score: 35 Fall Risk: Medium Risk Safety Measures: Call light Within Reach, Bed Alarm Zone 1, Side Rails Side Rails x2, Bed position Low and Locked. Fall Precautions: Yellow Socks Yellow Gown Door Sign Patient Fall Education Report given to [WES Magdaleno].
--- NOTE | 2020-06-16 07:07 | NUR ---
CASE MANAGEMENT:REVIEW 44 YR OLD FEMALE WALKED IN TO ER CC: FEVER OF 100.0 AND N/V/D. ABDOMINAL PAIN SI: DIVERTICULITIS 98.6 134 30 181/90 100% ON RA WBC+14.2 D-DIMER+0.88 IS:1L NS BOLUS X2 IV TORADOL X1 IV FENTANYL X1 IV MORPHINE X1 IV DILAUDID X1 IV ZOFRAN X1 IV FLAGYL X1 IV CIPRO X1 BLOOD CX CXR CT ABD/PELVIS CTA CHEST NOVEL COVID SWAB INFLUENZA A&B : TO TELEMETRY DCP: FROM HOME
--- NOTE | 2020-06-16 07:24 | NUR ---
NURSE NOTES: Received pt from Jerri HARVEY. Pt in bed resting. No complaint of pain or distress. Bed low and locked, call light within reach.
[2020-06-16 08:00] VITALS: BP 129/87
[2020-06-16] MEDS ORDERED: LOSARTAN POTASS50 MG ORAL (10:54)
[2020-06-16] MEDS ORDERED: PROVERA10 MG ORAL (10:54)
[2020-06-16 12:00] VITALS: BP 151/101
[2020-06-16] MEDS: Losartan 50mg tab ORAL SCH (12:37)
[2020-06-16] MEDS: Dicyclomine 10mg Cap ORAL SCH ×4 (12:40→21:00)
--- NOTE | 2020-06-16 12:57 | Diagnostic Imaging Report ---
Procedure: XRAY Chest 1v Reason for study: Chest pain. Comparison films: None. FINDINGS: A single one view chest is obtained. Vascularity is normal. The lung cui are clear bilaterally. Cardiac and mediastinal silhouette are within normal limits. CP angles are sharp. The bony thorax appear unremarkable. IMPRESSION: NO ACUTE CARDIOPULMONARY DISEASE.
[2020-06-16] MEDS ORDERED: Lisinopril 2.5mg tab ORAL SCH (13:00)
[2020-06-16] MEDS ORDERED: Lisinopril 10mg tab ORAL SCH (13:00)
--- NOTE | 2020-06-16 13:15 | NUR ---
NURSE NOTES: Pt became tachy while in the restroom, high of 159. Called Dr. Marcum's office and left VM asking him to please call back.
--- NOTE | 2020-06-16 13:30 | NUR ---
NURSE NOTES: Pt reported vaginal breathing, per pt, she stopped her menstrual cycle yesterday. Contacted Dr. Fermin to ask about possible OB consult. NNO.
[2020-06-16 16:00] VITALS: BP 124/81
--- NOTE | 2020-06-16 16:02 | NUR ---
INSURANCE CLINICALS/REVIEW FAXED TO [facility] [phone] PH [phone]
[2020-06-16] MEDS: Docusate 100mg cap ORAL SCH (17:04)
--- NOTE | 2020-06-16 17:07 | NUR ---
Truck Assembler: Re non admin of dicycylomine; this medication was in the pt's emar and Dr eFrmin continued it from home this morning. However after speaking with the pt she stated that this was actually medication that she had left over from the previous year when she had stomach flu. Per pt she was only taking it because she was hoping it might help, thus this is NOT a currently active prescribed medication. Relayed this information to Dr. Camacho and Dr. Saenz in order to get DC order. However neither have addressed it yet. I will follow up with both of them. However pt is aware of the misunderstanding and states she does not need/want to take it, but had mentioned it to the ER nurse upon admission because she had in fact taken it in that day hoping to address her GI issues.
--- NOTE | 2020-06-16 18:42 | NUR ---
NURSE HAND-OFF REPORT: Important Events on Shift:[Pt tachycardic at baseline, increases to 150's when ambulating. Pt had one episode of vaginal bleeding, pelvic US done. ] Patient Status: [Full code] Diet: [Low fiber] Pending Orders: [2D echo] Pending Results/Labs:[] Pending MD notification:[Please follow up re Librado (see note on this med)] Latest Vital Signs: Temperature 97.5 , Pulse 110 , B/P 124 /81 , Respiratory Rate 20 , O2 SAT 99 , Room Air, O2 Flow Rate . Vital Sign Comment: [] EKG Rhythm: Sinus Tachycardia Rhythm change?: N MD Notified?: - MD Response: Latest Paz Fall Score: 35 Fall Risk: Medium Risk Safety Measures: Call light Within Reach, Bed Alarm Zone 1, Side Rails Side Rails x2, Bed position Low and Locked. Fall Precautions: Yellow Socks Patient Fall Education Report given to [Pending Rn assignment]. Addendum: 06/16/20 at 1934 by Sharla Joseph RN Report given to Nickie Lovell RN
--- NOTE | 2020-06-16 19:35 | NUR ---
NURSE NOTES: Received report from obdulia brar. patient is on bed, awake and verbally responsive, able to make needs known,. denies any pain or discomfort at the moment. on room air, sating 97-100%. no SOB. iv access on the left hand running ns @ 75 ml/hr.patent and intact. per ani," pt is c/o constipation new orders of stool softener received". needs to collect stool specimen for ob stool and c-diff toxin. patient is aware. ambulates to the bathroom but heart rate goes high up to 150 per ani. reiterated to call and ask for assistance. call light and light button within easy reach. will continue plan of care.
[2020-06-16 20:00] VITALS: BP 132/79
--- NOTE | 2020-06-16 20:00 | NUR ---
NURSE NOTES: bedside commode placed for patient safety. educated patient to call or use the call light for assistance to prevent fall or injury. patient understands.
--- NOTE | 2020-06-16 20:30 | NUR ---
NURSE NOTES: paged dr. ríos for the mg level of 1.7 06/15/2019. awaiting for call back
[2020-06-16] MEDS: Miralax 17gm pkt ORAL SCH (21:05)
--- NOTE | 2020-06-16 21:40 | NUR ---
NURSE NOTES: received orders from dr. ríos to give mg sulfate 1gm x 1. order noted and carried out.
--- NOTE | 2020-06-16 22:20 | NUR ---
NURSE NOTES: administer mg sulfate ivpb. vitals of 150/82 mmhg, 110-115 bpm. patient is aware and verbalized understanding.
[2020-06-17] VITALS: BP 130/74
--- NOTE | 2020-06-17 01:00 | NUR ---
NURSE NOTES: assisted patient to the commode for bowel movement. bm of semi-formed stool. unable to collect stool due to urine contamination.will try to collect a specimen.
[2020-06-17 04:00] VITALS: BP 128/70
--- NOTE | 2020-06-17 06:15 | NUR ---
NURSE HAND-OFF: Important Events on Shift: s/p mg sulfate x1 due to mg level of 1.7; provided bedside commode for safety. Patient Status: stable Diet:low residue low fiber Pending Orders: 2decho Pending Results/Labs: Pending MD notification: Latest Vital Signs: Temperature 98.2 , Pulse 113 , B/P 128 /70 , Respiratory Rate 20 , O2 SAT 98 , Room Air, O2 Flow Rate . Vital Sign Comment: Latest Paz Fall Score: 35 Fall Risk: Medium Risk Safety Measures: Call light Within Reach, Bed Alarm Zone 1, Side Rails Side Rails x2, Bed position Low and Locked. Fall Precautions: Yellow Socks Patient Fall Education Addendum: 06/17/20 at 0724 by Nickie Lovell RN hand off given to obdulia gudino
[2020-06-17 07:13] LABS: % IRON SATURATION 11 % (15-50); BASOPHILS % (AUTO) 1.2 % (0.0-2.0); EOSINOPHILS % (AUTO) 1.6 % (0.0-3.0); HEMATOCRIT 32.4 % (37.0-47.0); HEMOGLOBIN 10.2 G/DL (12.0-16.0); IRON 30 ug/dL (50-175); LYMPHOCYTES % (AUTO) 26.7 % (20.0-45.0); MEAN CORPUSCULAR VOLUME 82 FL (80-99); MONOCYTES % (AUTO) 17.4 % (1.0-10.0); NEUTROPHILS % (AUTO) 53.1 % (45.0-75.0); PLATELET COUNT 373 K/UL (150-450); RED BLOOD COUNT 3.96 M/UL (4.20-5.40); RED CELL DISTRIBUTION WIDTH 13.9 % (11.6-14.8); TOTAL IRON BINDING CAPACITY 271 ug/dL (250-450); WHITE BLOOD COUNT 4.9 K/UL (4.8-10.8)
--- NOTE | 2020-06-17 07:15 | NUR ---
NURSE NOTES: Received patient report from WES Lopez. Patient is AO x4, in bed asleep at this time. Patient on RA satting at 97%, breathing is even and unlabored with no signs of respiratory distress. No pain or discomfort noted at this time. Patient with iv access on the left hand running ns @ 75 ml/hr.patent and intact. Bed in lowest position, locked with side rails x2 up. Call light within reach.
[2020-06-17 07:16] LABS: ALANINE AMINOTRANSFERASE 40 U/L (12-78); ALBUMIN 2.7 G/DL (3.4-5.0); ALBUMIN/GLOBULIN RATIO 0.6 (1.0-2.7); ALKALINE PHOSPHATASE 59 U/L (46-116); ANION GAP 11 mmol/L (5-15); ASPARTATE AMINO TRANSFERASE 36 U/L (15-37); BILIRUBIN,TOTAL 0.6 MG/DL (0.2-1.0); BLOOD UREA NITROGEN 10 mg/dL (7-18); CALCIUM 8.9 MG/DL (8.5-10.1); CARBON DIOXIDE 22 MMOL/L (21-32); CHLORIDE 108 MMOL/L (98-107); CREATININE 0.4 MG/DL (0.55-1.30); POTASSIUM 3.7 MMOL/L (3.5-5.1); SODIUM 141 MMOL/L (136-145)
[2020-06-17 08:00] VITALS: BP 132/90
--- NOTE | 2020-06-17 08:33 | General Progress Note ---
Subjective ROS Limited/Unobtainable: Yes Allergies: Coded Allergies: CLINDAMYCIN (Verified Allergy, Unknown, 11/27/16) Uncoded Allergies: ERYTHROMYCIN (Allergy, Unknown, 11/27/16) Objective Last 24 Hour Vital Signs Date Time Temp Pulse Resp B/P (MAP) Pulse Ox O2 Delivery O2 Flow Rate FiO2 06/17/20 08:00 113 06/17/20 04:00 113 06/17/20 04:00 98.2 111 20 128/70 (89) 98 06/17/20 00:00 97.8 111 20 130/74 (92) 100 06/17/20 00:00 121 06/16/20 21:00 Room Air 06/16/20 20:00 113 06/16/20 20:00 98.4 109 20 132/79 (96) 100 06/16/20 17:32 110 124/81 06/16/20 16:00 97.5 20 20 124/81 (95) 99 06/16/20 16:00 116 06/16/20 12:37 151/101 06/16/20 12:00 98.2 18 20 151/101 (118) 99 06/16/20 12:00 121 06/16/20 09:00 Room Air Intake and Output 06/16/20 06/17/20 19:00 07:00 Intake Total 1050 ml Balance 1050 ml Intake Oral 450 ml IV Total 600 ml # Voids 3 2 # Bowel Movements 1 Laboratory Tests 06/16/20 13:30: Urine Opiates Screen Negative, Urine Barbiturates Screen Negative, Phencyclidine (PCP) Screen Negative, Urine Amphetamines Screen Negative, Urine Benzodiazepines Screen Negative, Urine Cocaine Screen Negative, Urine Marijuana (THC) Screen PositiveH 06/17/20 06:19: White Blood Count 4.9, Red Blood Count 3.96L, Hemoglobin 10.2L, Hematocrit 32.4L , Mean Corpuscular Volume 82, Mean Corpuscular Hemoglobin 25.7L, Mean Corpuscular Hemoglobin Concent 31.4L, Red Cell Distribution Width 13.9, Platelet Count 373, Mean Platelet Volume 7.8, Neutrophils (%) (Auto) 53.1, Lymphocytes (% ) (Auto) 26.7, Monocytes (%) (Auto) 17.4H, Eosinophils (%) (Auto) 1.6, Basophils (%) (Auto) 1.2, Sodium Level 141, Potassium Level 3.7, Chloride Level 108H, Carbon Dioxide Level 22, Anion Gap 11, Blood Urea Nitrogen 10, Creatinine 0.4L, Estimat Glomerular Filtration Rate > 60, Glucose Level 102, Calcium Level 8.9, Iron Level 30L, Total Iron Binding Capacity 271, Percent Iron Saturation 11L, Unsaturated Iron Binding 241, Total Bilirubin 0.6, Aspartate Amino Transf (AST/SGOT) 36, Alanine Aminotransferase (ALT/SGPT) 40, Alkaline Phosphatase 59, Total Protein 6.9, Albumin 2.7L, Globulin 4.2, Albumin/Globulin Ratio 0.6L Height (Feet): 5 Height (Inches): 6.00 Weight (Pounds): 165 General Appearance: no apparent distress EENT: normal ENT inspection Neck: supple Cardiovascular: normal rate Respiratory/Chest: decreased breath sounds Abdomen: normal bowel sounds, non tender, soft Extremities: non-tender Assessment/Plan Assessment/Plan: abd pain iron def anemia abd pain is better no nausea add iv iron fu stool ob fu cbc cont colace, miralax and bentyl Nitin Saenz MD Jun 17, 2020 08:33
[2020-06-17] MEDS: Docusate 100mg cap ORAL SCH ×2 (09:01→17:09)
[2020-06-17] MEDS: Losartan 50mg tab ORAL SCH (09:01)
[2020-06-17] MEDS: Dicyclomine 10mg Cap ORAL SCH ×4 (09:01→21:04)
--- NOTE | 2020-06-17 09:12 | NUR ---
CASE MANAGEMENT:REVIEW 06/17/20 SI: ABDOMINAL PAIN. DIVERTICULITIS 98.3 113 20 132/90 99% ON RA IS: IV VENOFER QHS IVF@75/HR LOPRESSOR PO Q12 COZAAR PO QD BENTYL PO QID : TELEMETRY STATUS DCP: FROM HOME
--- NOTE | 2020-06-17 10:10 | Consultation ---
History of Present Illness General Chief Complaint: Flu Like Symptoms Present Illness HPI 44-year-old female past medical history of hypertension who presents to the ER complaining of abdominal pain. Patient states that around June 09 she went to [place] and started feeling sick the same day. She complains of diffuse abdominal cramping, nausea, nonbilious nonbloody vomitus and nonbloody diarrhea. She states that she got a COVID-19 test 2 days later and was negative. Patient complains of subjective fevers and body aches, history of hernia surgery last year and plan for hysterectomy soon due to uterine fibroids and menorrhagia. She denies chest pain, lower extremity pain or edema. CTA chest negative for PE, leg swelling now improved. No hx of ND, PCI, no heart failure diagnosis, no hx of DVT or hypercoagulability. She takes progesterone OCP, D-dimer negative, BNP mildly elevated 194, rate 120s in SR. Allergies: Coded Allergies: CLINDAMYCIN (Verified Allergy, Unknown, 11/27/16) Uncoded Allergies: ERYTHROMYCIN (Allergy, Unknown, 11/27/16) Medication History Scheduled Losartan Potassium (Losartan Potassium), 100 MG ORAL DAILY, (Reported) Medroxyprogesterone Acet* (Provera*), 10 MG ORAL DAILY, (Reported) Multivitamins* (Multivitamins*), 1 TAB ORAL DAILY, (Reported) Discontinued Medications Dicyclomine Hcl* (Dicyclomine Hcl*), 10 MG ORAL QID Discontinued Reason: Therapy completed Enalapril Maleate* (Enalapril Maleate*), 2.5 MG ORAL DAILY, (Reported) Discontinued Reason: Therapy completed Hydrochlorothiazide* (Hydrochlorothiazide*), 25 MG ORAL DAILY, (Reported) Discontinued Reason: Therapy completed Losartan Potassium* (Losartan Potassium*), 100 MG ORAL DAILY, (Reported) Discontinued Reason: Prescription changed Ondansetron Odt* (Zofran Odt*), 4 MG BC EVERY 8 HOURS PRN for Nausea & Vomiting Discontinued Reason: Therapy completed Patient History History Provided By: Patient Healthcare decision maker Resuscitation status Advanced Directive on File Review of Systems All Other Systems: negative except mentioned in HPI ROS Narrative Feeling better today than yesterday, generalized malaise with nausea Physical Exam General Appearance: WD/WN, alert HEENT: normocephalic, PERRL Neck: non-tender, supple Respiratory/Chest: lungs clear Cardiovascular/Chest: regular rhythm, tachycardia Abdomen: soft Extremities: trace edema Skin Exam: normal pigmentation, warm/dry Neurologic: oriented x 3 Last 24 Hour Vital Signs Date Time Temp Pulse Resp B/P (MAP) Pulse Ox O2 Delivery O2 Flow Rate FiO2 06/17/20 09:01 113 132/90 06/17/20 09:01 132/90 06/17/20 09:00 Room Air 06/17/20 08:00 98.3 113 20 132/90 (104) 99 06/17/20 08:00 113 06/17/20 04:00 113 06/17/20 04:00 98.2 111 20 128/70 (89) 98 06/17/20 00:00 97.8 111 20 130/74 (92) 100 06/17/20 00:00 121 06/16/20 21:00 Room Air 06/16/20 20:00 113 06/16/20 20:00 98.4 109 20 132/79 (96) 100 06/16/20 17:32 110 124/81 06/16/20 16:00 97.5 20 20 124/81 (95) 99 06/16/20 16:00 116 06/16/20 12:37 151/101 06/16/20 12:00 98.2 18 20 151/101 (118) 99 06/16/20 12:00 121 Intake and Output 06/16/20 06/17/20 19:00 07:00 Intake Total 1050 ml Balance 1050 ml Intake Oral 450 ml IV Total 600 ml # Voids 3 2 # Bowel Movements 1 Laboratory Tests Test 06/16/20 13:30 06/17/20 06:19 06/17/20 09:24 Urine Opiates Screen Negative (NEGATIVE) Urine Barbiturates Screen Negative (NEGATIVE) Phencyclidine (PCP) Screen Negative (NEGATIVE) Urine Amphetamines Screen Negative (NEGATIVE) Urine Benzodiazepines Screen Negative (NEGATIVE) Urine Cocaine Screen Negative (NEGATIVE) Urine Marijuana (THC) Screen Positive (NEGATIVE) H White Blood Count 4.9 K/UL (4.8-10.8) Red Blood Count 3.96 M/UL (4.20-5.40) L Hemoglobin 10.2 G/DL (12.0-16.0) L Hematocrit 32.4 % (37.0-47.0) L Mean Corpuscular Volume 82 FL (80-99) Mean Corpuscular Hemoglobin 25.7 PG (27.0-31.0) L Mean Corpuscular Hemoglobin Concent 31.4 G/DL (32.0-36.0) L Red Cell Distribution Width 13.9 % (11.6-14.8) Platelet Count 373 K/UL (150-450) Mean Platelet Volume 7.8 FL (6.5-10.1) Neutrophils (%) (Auto) 53.1 % (45.0-75.0) Lymphocytes (%) (Auto) 26.7 % (20.0-45.0) Monocytes (%) (Auto) 17.4 % (1.0-10.0) H Eosinophils (%) (Auto) 1.6 % (0.0-3.0) Basophils (%) (Auto) 1.2 % (0.0-2.0) Sodium Level 141 MMOL/L (136-145) Potassium Level 3.7 MMOL/L (3.5-5.1) Chloride Level 108 MMOL/L (98-107) H Carbon Dioxide Level 22 MMOL/L (21-32) Anion Gap 11 mmol/L (5-15) Blood Urea Nitrogen 10 mg/dL (7-18) Creatinine 0.4 MG/DL (0.55-1.30) L Estimat Glomerular Filtration Rate > 60 mL/min (>60) Glucose Level 102 MG/DL (74-106) Calcium Level 8.9 MG/DL (8.5-10.1) Iron Level 30 ug/dL (50-175) L Total Iron Binding Capacity 271 ug/dL (250-450) Percent Iron Saturation 11 % (15-50) L Unsaturated Iron Binding 241 ug/dL (112-346) Total Bilirubin 0.6 MG/DL (0.2-1.0) Aspartate Amino Transf (AST/SGOT) 36 U/L (15-37) Alanine Aminotransferase (ALT/SGPT) 40 U/L (12-78) Alkaline Phosphatase 59 U/L (46-116) Total Protein 6.9 G/DL (6.4-8.2) Albumin 2.7 G/DL (3.4-5.0) L Globulin 4.2 g/dL Albumin/Globulin Ratio 0.6 (1.0-2.7) L Stool Occult Blood Pending Height (Feet): 5 Height (Inches): 6.00 Weight (Pounds): 165 Medications Current Medications Medications (Trade) Dose Ordered Sig/Annalee Route PRN Reason Start Time Stop Time Status Last Admin Dose Admin Acetaminophen (Tylenol) 650 mg Q6H PRN ORAL For Headache and Fever >100.5 06/16/20 00:30 07/16/20 00:29 06/16/20 04:27 Dicyclomine HCl (Bentyl) 10 mg QID ORAL 06/16/20 13:00 07/16/20 12:59 06/17/20 09:01 Docusate Sodium (Colace) 100 mg TWICE A DAY ORAL 06/16/20 18:00 07/16/20 17:59 06/17/20 09:01 Hydromorphone HCl (Dilaudid) 0.5 mg Q4H PRN IVP For Pain 06/16/20 00:30 06/23/20 00:29 Iohexol (OMNIPAQUE-300 100ml) 100 ml NOW PRN INJ Radiology Procedure 06/15/20 17:30 06/17/20 17:29 Iron Sucrose 100 mg/Sodium Chloride 60 ml @ 240 mls/hr BEDTIME IVPB 06/17/20 21:00 06/21/20 21:14 Losartan Potassium (Cozaar) 100 mg DAILY ORAL 06/16/20 13:00 07/16/20 12:59 06/17/20 09:01 Metoprolol Tartrate (Lopressor) 25 mg Q12HR ORAL 06/16/20 17:30 09/14/20 17:29 06/17/20 09:01 Ondansetron HCl (Zofran) 4 mg Q6H PRN IVP Nausea & Vomiting 06/16/20 00:30 07/16/20 00:29 Polyethylene Glycol (Miralax) 17 gm BEDTIME ORAL 06/16/20 21:00 07/16/20 20:59 06/16/20 21:05 Sodium Chloride 1,000 ml @ 75 mls/hr [id number] IV 06/16/20 00:30 07/16/20 00:29 06/16/20 21:06 Assessment/Plan Status: stable Status Narrative Echo pending, CTA negative for PE. Will start Bb low dose to help with rate. Further recs to follow clinical progress. Assessment/Plan: 1. Generalized malaise with fever, flu-like sx covid negative 2. Sinus tachycardia CTA chest negative for PE, D-dimer negative Bb for rate control 4. Cardiomyopathy with elevated BNP 194 echo pending 5. Leg edema, acute on chronic- improved with time and elevation 6. Diverticulitis - chronic 7. Uterine fibroids and menorrhagia pt on OCP MIPS Medication Reconciliation Is this a Psycho/Diag encounte: No Depression Does this Patient have Dementi: No Toña Carranza PA-C Jun 17, 2020 10:10
[2020-06-17 12:00] VITALS: BP 136/91
--- NOTE | 2020-06-17 12:54 | Diagnostic Imaging Report ---
Indication: Abdominal pain, fevers Technique: Transabdominal images only of the pelvis. Doppler interrogation of the ovaries. Transvaginal imaging not performed, per patient preference Comparison: No comparison sonograms. Reference made to abdomen pelvis CT scan dated 06/15/2020 Findings: Exam is limited due to lack of available transvaginal images. Uterus is enlarged, retroflexed, measures 10.8 cm length by 7.2 cm AP. Endometrium measures 9 mm thick. The myometrium is diffusely heterogeneous, demonstrates multiple masses, largest discrete mass measuring 3.9 cm diameter. The ovaries are normal in size and configuration, demonstrating normal Doppler signal. No free cul-de-sac fluid Impression: Limited exam, due to lack of endovaginal images Enlarged fibroid uterus Grossly normal ovaries
[2020-06-17] MEDS ORDERED: LOSARTAN POTAS100 MG ORAL (13:16)
[2020-06-17] MEDS ORDERED: MULTIVITAMINS1 EAC2 ORAL (13:16)
[2020-06-17 16:00] VITALS: BP 130/88
--- NOTE | 2020-06-17 16:36 | General Progress Note ---
Subjective Constitutional: Reports: weakness HEENT: Reports: no symptoms Cardiovascular: Reports: no symptoms Respiratory: Reports: no symptoms Gastrointestinal/Abdominal: Reports: abdominal pain, diarrhea, nausea Genitourinary: Reports: no symptoms Neurologic/Psychiatric: Reports: no symptoms Endocrine: Reports: unexplained weight loss Hematologic/Lymphatic: Reports: no symptoms Allergies: Coded Allergies: CLINDAMYCIN (Verified Allergy, Unknown, 11/27/16) Uncoded Allergies: ERYTHROMYCIN (Allergy, Unknown, 11/27/16) Subjective c/o n/v diarrhea Objective Last 24 Hour Vital Signs Date Time Temp Pulse Resp B/P (MAP) Pulse Ox O2 Delivery O2 Flow Rate FiO2 06/17/20 16:00 97.0 99 20 130/88 (102) 99 06/17/20 12:00 102 06/17/20 12:00 96.8 96 19 136/91 (106) 99 06/17/20 09:01 113 132/90 06/17/20 09:01 132/90 06/17/20 09:00 Room Air 06/17/20 08:00 98.3 113 20 132/90 (104) 99 06/17/20 08:00 113 06/17/20 04:00 113 06/17/20 04:00 98.2 111 20 128/70 (89) 98 06/17/20 00:00 97.8 111 20 130/74 (92) 100 06/17/20 00:00 121 06/16/20 21:00 Room Air 06/16/20 20:00 113 06/16/20 20:00 98.4 109 20 132/79 (96) 100 06/16/20 17:32 110 124/81 Intake and Output0 06/16/20 06/17/20 19:00 07:00 Intake Total 1050 ml Balance 1050 ml Intake Oral 450 ml IV Total 600 ml # Voids 3 2 # Bowel Movements 1 Laboratory Tests 06/17/20 06:19: White Blood Count 4.9, Red Blood Count 3.96L, Hemoglobin 10.2L, Hematocrit 32.4L , Mean Corpuscular Volume 82, Mean Corpuscular Hemoglobin 25.7L, Mean Corpuscular Hemoglobin Concent 31.4L, Red Cell Distribution Width 13.9, Platelet Count 373, Mean Platelet Volume 7.8, Neutrophils (%) (Auto) 53.1, Lymphocytes (%) (Auto) 26.7, Monocytes (%) (Auto) 17.4H, Eosinophils (%) (Auto) 1.6, Basophils (%) (Auto) 1.2, Sodium Level 141, Potassium Level 3.7, Chloride Level 108H, Carbon Dioxide Level 22, Anion Gap 11, Blood Urea Nitrogen 10, Creatinine 0.4L, Estimat Glomerular Filtration Rate > 60, Glucose Level 102, Calcium Level 8.9, Magnesium Level 1.8, Iron Level 30L, Total Iron Binding Capacity 271, Percent Iron Saturation 11L, Unsaturated Iron Binding 241, Total Bilirubin 0.6, Aspartate Amino Transf (AST/SGOT) 36, Alanine Aminotransferase (ALT/SGPT) 40, Alkaline Phosphatase 59, Total Protein 6.9, Albumin 2.7L, Globulin 4.2, Albumin/ Globulin Ratio 0.6L 06/17/20 09:24: Stool Occult Blood Negative Height (Feet): 5 Height (Inches): 6.00 Weight (Pounds): 165 General Appearance: alert EENT: PERRL/EOMI Neck: supple Cardiovascular: regular rhythm Respiratory/Chest: normal breath sounds Abdomen: non tender, soft Extremities: non-tender Assessment/Plan Assessment/Plan: rec n/v diarreha dehydration tachcardia stool for cdiff increased po fluids stool for c diff check 2d echo gi and cardioloy on consult Gustavo Fermin MD Jun 17, 2020 16:36
--- NOTE | 2020-06-17 17:52 | NUR ---
INSURANCE CLINICALS/REVIEW FAXED TO [facility] [phone] PH [phone]
--- NOTE | 2020-06-17 19:24 | NUR ---
NURSE HAND-OFF REPORT: Important Events on Shift:NA Patient Status: Stable Diet: Low fiber diet Pending Orders: NA Pending Results/Labs:NA Pending MD notification:NA Latest Vital Signs: Temperature 97.0 , Pulse 107 , B/P 130 /88 , Respiratory Rate 20 , O2 SAT 99 , Room Air, O2 Flow Rate . Vital Sign Comment: Stable EKG Rhythm: Sinus Tachycardia Rhythm change?: N MD Notified?: - MD Response: Latest Paz Fall Score: 35 Fall Risk: Medium Risk Safety Measures: Call light Within Reach, Bed Alarm Zone 1, Side Rails Side Rails x2, Bed position Low and Locked. Fall Precautions: Yellow Socks Patient Fall Education Report given to WES Michelle.
--- NOTE | 2020-06-17 19:30 | NUR ---
NURSE NOTES: Received pt and report from WES Reid. Observed pt resting in bed and watching television. Pt is A/Ox4. citrus peeler is in placed; pt is ST (107bpm). IV site intact, asymptomatic, and patent; running NS @ 75ml/hr. Bed is in the lowest position and locked. Call light and bedside table is within reach. No sign/symptoms of acute distress noted. Will continue plan of care.
[2020-06-17 20:00] VITALS: BP 146/68
[2020-06-17] MEDS ORDERED: Iron Sucrose 100 MG in NS 55 ML IVPB SCH (21:00)
[2020-06-17] MEDS: Miralax 17gm pkt ORAL SCH (21:00)
[2020-06-18] VITALS: BP 124/73
--- NOTE | 2020-06-18 01:04 | NUR ---
NURSE NOTES: Pt stated IV fluids was burning and asked to stop IV fluids for now. Educated pt on risks and benefits of IV fluids. Pt verbalized understanding. Will check on pt again shortly.
--- NOTE | 2020-06-18 02:00 | NUR ---
NURSE NOTES: Checked on pt and asked if pt would like to be hooked back onto IV fluids. Pt stated that the IV was hurting her hand and would like RN to remove it. RN offered to remove old IV and insert a new IV in a different area, but pt refused another IV insertion. Educated pt on the risks and benefits of having an IV inserted and present in case of an emergency. Pt verbalized understanding and told RN she would like a new one to be inserted closer to breakfast. Will continue to monitor pt closely.
[2020-06-18 04:00] VITALS: BP 144/73
[2020-06-18 06:19] LABS: BASOPHILS % (AUTO) 1.1 % (0.0-2.0); EOSINOPHILS % (AUTO) 2.7 % (0.0-3.0); HEMATOCRIT 33.5 % (37.0-47.0); HEMOGLOBIN 10.4 G/DL (12.0-16.0); LYMPHOCYTES % (AUTO) 30.6 % (20.0-45.0); MEAN CORPUSCULAR VOLUME 81 FL (80-99); MONOCYTES % (AUTO) 17.8 % (1.0-10.0); NEUTROPHILS % (AUTO) 47.8 % (45.0-75.0); PLATELET COUNT 407 K/UL (150-450); RED BLOOD COUNT 4.12 M/UL (4.20-5.40); RED CELL DISTRIBUTION WIDTH 13.6 % (11.6-14.8); WHITE BLOOD COUNT 4.3 K/UL (4.8-10.8)
--- NOTE | 2020-06-18 07:40 | NUR ---
NURSE NOTES: Report received from WES Michelle. Pt received awake, alert and oriented x 4, no SOB, bed in lowest position with break engaged and alarm on, denies any pain or discomfort at this time, physical therapy professor in place, no IV upon receiving pt, during rounds, pt stated that she needed to rest first because it hurts (IV insertion) will follow up and continue to encourage IV insertion, will continue to monitor for change and proceed with plan of care, call light within reach
--- NOTE | 2020-06-18 07:49 | NUR ---
NURSE HAND-OFF REPORT: Important Events on Shift: No significant changes during tilt tray driver. No complaints of CP or SOB. Attempted IV insertion prior to breakfast but was unsuccessful. Endorsed to dayshift nurse. Patient Status: Stable Diet: Low residual/Low fiber Pending Orders: N Pending Results/Labs: AM Labs Pending MD notification: N Latest Vital Signs: Temperature 97.9 , Pulse 101 , B/P 144 /73 , Respiratory Rate 19 , O2 SAT 98 , Room Air, O2 Flow Rate . EKG Rhythm: Sinus Tachycardia Rhythm change?: N Latest Paz Fall Score: 35 Fall Risk: Medium Risk Safety Measures: Call light Within Reach, Bed Alarm Zone 1, Side Rails Side Rails x2, Bed position Low and Locked. Fall Precautions: Yellow Socks Patient Fall Education Report given to WES Rollins.
[2020-06-18 08:00] VITALS: BP 150/87
[2020-06-18] MEDS: Losartan 50mg tab ORAL SCH (09:01)
[2020-06-18] MEDS: Docusate 100mg cap ORAL SCH ×2 (09:01→17:00)
[2020-06-18] MEDS: Dicyclomine 10mg Cap ORAL SCH ×3 (09:01→17:02)
--- NOTE | 2020-06-18 10:09 | Cardiology Progress Note ---
Assessment/Plan Status Narrative Echo pending, CTA negative for PE. Will start Bb low dose to help with rate. Further recs to follow clinical progress. Objective Last 24 Hour Vital Signs Date Time Temp Pulse Resp B/P (MAP) Pulse Ox O2 Delivery O2 Flow Rate FiO2 06/18/20 09:01 103 150/87 06/18/20 09:01 150/87 06/18/20 09:00 Room Air 06/18/20 08:00 96.8 103 19 150/87 (108) 99 06/18/20 08:00 108 06/18/20 04:00 101 06/18/20 04:00 97.9 104 19 144/73 (96) 98 06/18/20 00:00 100 06/18/20 00:00 98.8 99 17 124/73 (90) 98 06/17/20 21:04 104 146/68 06/17/20 21:00 Room Air 06/17/20 20:00 114 06/17/20 20:00 98.8 114 19 146/68 (94) 98 06/17/20 16:00 107 06/17/20 16:00 97.0 99 20 130/88 (102) 99 06/17/20 12:00 102 06/17/20 12:00 96.8 96 19 136/91 (106) 99 Intake and Output 06/17/20 06/18/20 19:00 07:00 Intake Total 75 ml 690 ml Balance 75 ml 690 ml Intake Oral 240 ml IV Total 75 ml 450 ml # Voids 3 3 # Bowel Movements 1 Laboratory Tests Test 06/18/20 05:54 White Blood Count 4.3 K/UL (4.8-10.8) L Red Blood Count 4.12 M/UL (4.20-5.40) L Hemoglobin 10.4 G/DL (12.0-16.0) L Hematocrit 33.5 % (37.0-47.0) L Mean Corpuscular Volume 81 FL (80-99) Mean Corpuscular Hemoglobin 25.2 PG (27.0-31.0) L Mean Corpuscular Hemoglobin Concent 31.0 G/DL (32.0-36.0) L Red Cell Distribution Width 13.6 % (11.6-14.8) Platelet Count 407 K/UL (150-450) Mean Platelet Volume 7.3 FL (6.5-10.1) Neutrophils (%) (Auto) 47.8 % (45.0-75.0) Lymphocytes (%) (Auto) 30.6 % (20.0-45.0) Monocytes (%) (Auto) 17.8 % (1.0-10.0) H Eosinophils (%) (Auto) 2.7 % (0.0-3.0) Basophils (%) (Auto) 1.1 % (0.0-2.0) Microbiology Date/Time Source Procedure Growth Status 06/15/20 17:30 Blood Blood Culture - Preliminary NO GROWTH AFTER 48 HOURS Resulted 06/15/20 17:20 Nasal Nares - Final Complete 06/15/20 17:20 Nasal Nares - Final Complete 06/15/20 17:20 Nasopharynx Coronavirus COVID-19 PCR ([facility]) - Final Complete 06/15/20 17:20 Blood Blood Culture - Preliminary NO GROWTH AFTER 48 HOURS Resulted Toña Carranza PA-C Jun 18, 2020 10:09
--- NOTE | 2020-06-18 11:32 | General Progress Note ---
Subjective ROS Limited/Unobtainable: Yes Allergies: Coded Allergies: CLINDAMYCIN (Verified Allergy, Unknown, 11/27/16) Uncoded Allergies: ERYTHROMYCIN (Allergy, Unknown, 11/27/16) Objective Last 24 Hour Vital Signs Date Time Temp Pulse Resp B/P (MAP) Pulse Ox O2 Delivery O2 Flow Rate FiO2 06/18/20 09:01 103 150/87 06/18/20 09:01 150/87 06/18/20 09:00 Room Air 06/18/20 08:00 96.8 103 19 150/87 (108) 99 06/18/20 08:00 108 06/18/20 04:00 101 06/18/20 04:00 97.9 104 19 144/73 (96) 98 06/18/20 00:00 100 06/18/20 00:00 98.8 99 17 124/73 (90) 98 06/17/20 21:04 104 146/68 06/17/20 21:00 Room Air 06/17/20 20:00 114 06/17/20 20:00 98.8 114 19 146/68 (94) 98 06/17/20 16:00 107 06/17/20 16:00 97.0 99 20 130/88 (102) 99 06/17/20 12:00 102 06/17/20 12:00 96.8 96 19 136/91 (106) 99 Intake and Output 06/17/20 06/18/20 19:00 07:00 Intake Total 75 ml 690 ml Balance 75 ml 690 ml Intake Oral 240 ml IV Total 75 ml 450 ml # Voids 3 3 # Bowel Movements 1 Laboratory Tests 06/18/20 05:54: White Blood Count 4.3L, Red Blood Count 4.12L, Hemoglobin 10.4L, Hematocrit 33.5L, Mean Corpuscular Volume 81, Mean Corpuscular Hemoglobin 25.2L, Mean Corpuscular Hemoglobin Concent 31.0L, Red Cell Distribution Width 13.6, Platelet Count 407, Mean Platelet Volume 7.3, Neutrophils (%) (Auto) 47.8, Lymphocytes (%) (Auto) 30.6, Monocytes (%) (Auto) 17.8H, Eosinophils (%) (Auto) 2.7, Basophils (%) (Auto) 1.1 Height (Feet): 5 Height (Inches): 6.00 Weight (Pounds): 165 General Appearance: no apparent distress EENT: normal ENT inspection Neck: supple Cardiovascular: normal rate Respiratory/Chest: decreased breath sounds Abdomen: normal bowel sounds, non tender, soft Extremities: non-tender Assessment/Plan Status: stable Assessment/Plan: abd pain iron def anemia abd pain is better no nausea iv iron fu stool ob fu cbc cont colace, miralax and bentyl Nitin Saenz MD Jun 18, 2020 11:32
[2020-06-18 12:00] VITALS: BP 133/89
--- NOTE | 2020-06-18 15:42 | NUR ---
CASE MANAGEMENT:REVIEW 06/18/20 SI: UNCOMPLICATED SIGMOID DIVERTICULITIS ABDOMINAL PAIN 96.8 103 19 150/87 99% ON RA WBC-4.3 H/H-10.4/33.5 IS: IV VENOFER QHS IVF@75/HR LOPRESSOR PO Q12 COZAAR PO QD BENTYL PO QID : TELEMETRY STATUS DCP: FROM HOME
[2020-06-18 16:00] VITALS: BP 125/89
--- NOTE | 2020-06-18 16:51 | General Progress Note ---
Subjective Allergies: Coded Allergies: CLINDAMYCIN (Verified Allergy, Unknown, 11/27/16) Uncoded Allergies: ERYTHROMYCIN (Allergy, Unknown, 11/27/16) Subjective c/o n/v better diarrhea better Objective Last 24 Hour Vital Signs Date Time Temp Pulse Resp B/P (MAP) Pulse Ox O2 Delivery O2 Flow Rate FiO2 06/18/20 16:00 96.6 113 18 125/89 (101) 100 06/18/20 12:00 96.7 90 18 133/89 (104) 100 06/18/20 12:00 97 06/18/20 09:01 103 150/87 06/18/20 09:01 150/87 06/18/20 09:00 Room Air 06/18/20 08:00 96.8 103 19 150/87 (108) 99 06/18/20 08:00 108 06/18/20 04:00 101 06/18/20 04:00 97.9 104 19 144/73 (96) 98 06/18/20 00:00 100 06/18/20 00:00 98.8 99 17 124/73 (90) 98 06/17/20 21:04 104 146/68 06/17/20 21:00 Room Air 06/17/20 20:00 114 06/17/20 20:00 98.8 114 19 146/68 (94) 98 Intake and Output 06/17/20 06/18/20 19:00 07:00 Intake Total 75 ml 690 ml Balance 75 ml 690 ml Intake Oral 240 ml IV Total 75 ml 450 ml # Voids 3 3 # Bowel Movements 1 Laboratory Tests 06/18/20 05:54: White Blood Count 4.3L, Red Blood Count 4.12L, Hemoglobin 10.4L, Hematocrit 33.5L, Mean Corpuscular Volume 81, Mean Corpuscular Hemoglobin 25.2L, Mean Corpuscular Hemoglobin Concent 31.0L, Red Cell Distribution Width 13.6, Platelet Count 407, Mean Platelet Volume 7.3, Neutrophils (%) (Auto) 47.8, Lymphocytes (%) (Auto) 30.6, Monocytes (%) (Auto) 17.8H, Eosinophils (%) (Auto) 2.7, Basophils (%) (Auto) 1.1 Height (Feet): 5 Height (Inches): 6.00 Weight (Pounds): 165 General Appearance: alert EENT: PERRL/EOMI Neck: supple Cardiovascular: regular rhythm, tachycardia Respiratory/Chest: normal breath sounds Abdomen: non tender, soft Extremities: non-tender Assessment/Plan Status: stable Assessment/Plan: rec n/v resolved diarreha better dehydration tachcardia stool for cdiff increased po fluids stool for c diff check 2d echo gi and cardioloy on consult dc home with regular diet fu in office next week Gustavo Fermin MD Jun 18, 2020 16:51
--- NOTE | 2020-06-18 17:20 | NUR ---
INSURANCE CLINICALS/REVIEW FAXED TO [facility] [phone] PH [phone]
[2020-06-18] MEDS ORDERED: LEVOFLOXACIN500 MG ORAL (17:21)
[2020-06-18] MEDS ORDERED: IMODIUM2 MG ORAL (17:26)
[2020-06-18] MEDS ORDERED: LOPERAMIDE2 M1 PO (17:28)
--- NOTE | 2020-06-18 18:27 | NUR ---
NURSE NOTES: Patient was discharged home at 1830 in stable condition accompanied by mom. Discharge paper works signed, all belongings complete, ID band and IV line removed. No c/o discomfort at the time of discharge, prescription sent with patient. Discussed discharge instructions and need for follow up.
--- NOTE | 2020-06-19 05:10 | Cardiology Report ---
APPROVED REPORT EKG Measurement Heart [id number] <Conclusion> Sinus tachycardia Otherwise normal ECG
--- NOTE | 2020-06-19 05:10 | Cardiology Report ---
APPROVED REPORT EXAM: Two-dimensional and M-mode echocardiogram with Doppler and color Doppler. INDICATION Tachycardia M-Mode DIMENSIONS IVSd0.9 (0.7-1.1cm)Left Atrium (MM)3.1 (1.6-4.0cm) LVDd4.6 (3.5-5.6cm)Aortic Root3.4 (2.0-3.7cm) PWd0.9 (0.7-1.1cm)Aortic Cusp Exc.2.2 (1.5-2.0cm) IVSs1.8 cmEPSS0.6 (>1.0cm) LVDs2.5 (2.5-4.0cm) PWs1.8 cm <Conclusion> Normal left ventricular chamber size, systolic function and wall motion. Left ventricular ejection fraction estimated to be 55-60 %. No evidence of left ventricular hypertrophy. No evidence of pericardial effusion. Left atrial size at upper limits of normal. Right cardiac chamber sizes are within normal limits. Mild focal aortic valve sclerosis with adequate cusp excursion. Mildly thickened mitral valve leaflets with normal excursion. Mitral annulus and aortic root calcification. Pulmonic valve not well visualized. Normal tricuspid valve structure. IVC dilated at 2.3 cm with slightly physiologic collapse. A color flow and spectral Doppler study was performed and revealed: No aortic regurgitation. Mild mitral regurgitation. Mitral inflow indicates normal left ventricular diastolic function. Trace tricuspid regurgitation. Tricuspid systolic velocities suggests peak right ventricular systolic pressure of 22 mmHg. Trace pulmonic regurgitation present.
--- NOTE | 2020-06-21 16:29 | History and Physical Report ---
DATE OF ADMISSION: 06/15/2020 HISTORY OF PRESENT ILLNESS: This is a 44-year-old female who came to the emergency room for having abdominal pain, nausea, vomiting about a few days prior to admission. The patient claims she had traveled from [place] for a trip, came back, had a COVID test done about a few weeks ago and was negative. Now, since then, she has started having nausea, vomiting, abdominal pain. The patient was found to have acute diverticulitis and is still having some cramps and pain, unable to eat any food, and having recurrent nausea and vomiting. The patient claims she has flu-like symptoms. The patient is otherwise alert and oriented in the bed. PAST MEDICAL HISTORY: Significant for hypertension, conjunctivitis. MEDICATIONS: The medications she is taking are enalapril, , hydrochlorothiazide, Zofran. ALLERGIES: Clindamycin and erythromycin. PHYSICAL EXAMINATION: GENERAL: This is a young middle-aged female, currently in bed. She is tachycardic. Pain level is 5/10, has been taking a Dilaudid from the ER to here. CURRENT VITAL SIGNS: Heart rate is 130 to 117, blood pressure 129/87, temperature 98.7, respirations 20s. SKIN: Good skin turgor. HEENT: NAD. CHEST: Bilaterally few crackles. CARDIOVASCULAR: Regular rhythm. No gallop. No murmur. ABDOMEN: Soft. Mild tenderness. GENITOURINARY: Examination is deferred. LABORATORY DATA: White counts are 14,000, hemoglobin 11, hematocrit 36, platelets are 398. Chemistry panel, sodium 139, potassium 4.4, BUN 12, creatinine 0.5. Lactic acid 1.70. Troponin 0.006. C-reactive protein 3.1. Imaging, CT of abdomen, the patient has noncomplicated sigmoid diverticulitis. No free air or abscess. She also had a CT of chest, normal CT chest, no embolism. ASSESSMENT: 1. Acute diverticulitis. 2. Hypertension. 3. Tachycardia. PLAN: We will admit on telemetry bed. Start IV fluid, IV antibiotic. Consider GI consult. Consider also cardiology consult. Monitor lab, CBC, CMP. Arley Fermin M.D. DR: SADAF JOB#: [id number] CC:
--- NOTE | 2020-06-22 16:25 | Discharge Summary ---
Discharge Summary Discharge Summary _ Date of admission: 06/15/2020 Date of discharge: 06/13/[address] Fermin History of Present Illness and Brief Hospital Course Ms. Kelly is a 44-year-old female with past medical history of hypertension who presented to the ED for evaluation of abdominal pain, associated with nausea and vomiting for a few days prior to admission. She reported that she had traveled to [place] a few weeks ago and got tested for COVID-19 which was negative. She reported a history of hernia repair last year. Abdomen/pelvis CT was notable for uncomplicated sigmoid diverticulitis. CT angiography of chest was negative for pulmonary embolism. Patient's echocardiogram revealed left ventricular ejection fraction of 55 to 60%. She was found to be anemic with iron deficiency on admission. Stool occult blood was negative. Her iron was replaced. Patient received Colace, MiraLAX, and Bentyl. Patient's nausea and vomiting began to improve over the next few days and patient began tolerating diet. She was medically stable for discharge and was discharged home on 06/18/2020. Patient was discharged home with regular diet. She is to follow-up with desk attendant within 1 week as an outpatient. Consultants: Cardiology Dr. Marcum Discharge Condition Improved and stable Discharge Diet Regular diet Final diagnoses Malaise, fever, flulike symptoms Sinus tachycardia Cardiomyopathy with elevated BNP Leg edema Diverticulitis Uterine fibroids and menorrhagia I have been assigned to dictate discharge summary for this account. I was not involved in the patient's management Petar Anne Jun 22, 2020 16:25
== END 2020-06-18 18:45 | disposition home or self-care (01) | DRG 244 ==
LOC: EMR 17:52 → 2E 20:55 → EDBEDREQ 21:03
DX: K57.92 Diverticulitis of intestine, part unspecified, without perforation or abscess without bleeding (principal); I42.9 Cardiomyopathy, unspecified; D50.9 Iron deficiency anemia, unspecified; Z88.1 Allergy status to other antibiotic agents; I10 Essential (primary) hypertension; R00.0 Tachycardia, unspecified; R50.9 Fever, unspecified; R53.81 Other malaise; D25.9 Leiomyoma of uterus, unspecified; N92.0 Excessive and frequent menstruation with regular cycle; R60.9 Edema, unspecified
CPT/HCPCS: 36415; 71045; 71275; 74177; 76857; 80053; 80307; 81003; 81025; 82270; 82550; 82728; 83540; 83550; 83605; 83615; 83690; 83735; 83880; 84484; 85025; 85379; 85610; 85730; 86140; 86710; 87040; 87324; 93005; 93306; 96361; 96365; 96375; 96376; 99285; J2405; J7030